=== PATIENT | female | born 1980 | race Two or more races ===

== ENCOUNTER 2020-10-02 17:38 | Emergency (ER) | payer SELFPAY ==
[~2020-10-02] VITALS: Ht 167.6 cm; Wt 149.7 kg
[2020-10-02 18:30] VITALS: BP 131/87
[2020-10-02] MEDS ORDERED: KETOROLAC TROMETH 60MG/2ML VIAL IM ONE (21:45)
== END 2020-10-02 21:54 | disposition home or self-care (01) ==
LOC: ER 17:38
DX: M25.511 Pain in right shoulder (principal); M48.54XA Collapsed vertebra, not elsewhere classified, thoracic region, initial encounter for fracture
CPT/HCPCS: 72070; 81025; 96372; 99283; J1885